=== PATIENT | male | born 1945 | race Caucasian/White ===

== ENCOUNTER 2018-06-22 08:15 | Outpatient (REF) | payer BC, SELFPAY ==
[2018-06-22 21:29] LABS: BUN 12 mg/dL (7-18); CREATININE 0.71 mg/dL (0.70-1.30)
== END 2018-06-22 08:16 ==
LOC: NCHCN 08:15
PROVIDERS: PCP Internal Medicine; Visit Provider Internal Medicine
DX: Z01.812 Encounter for preprocedural laboratory examination (principal); Z13.89 Encounter for screening for other disorder
CPT/HCPCS: 84520; 82565

== ENCOUNTER 2019-02-28 15:26 | Outpatient (REF) | payer BC, SELFPAY ==
[2019-02-28 20:54] LABS: Anion Gap 6.5 mmol/L (3-11); BUN 11 mg/dL (7-18); CO2 31.5 mmol/L (21.0-32.0); CREATININE 0.61 mg/dL (0.70-1.30); Calcium 8.9 mg/dL (8.5-10.1); Chloride 93 mmol/L (98-107); Glucose 96 mg/dL (70-100); Potassium 3.3 mmol/L (3.5-5.1); Sodium 131 mmol/L (136-145)
== END 2019-02-28 15:46 ==
LOC: NCHCN 15:26
PROVIDERS: PCP Internal Medicine; Visit Provider Internal Medicine
DX: I10 Essential (primary) hypertension (principal)
CPT/HCPCS: 80048

== ENCOUNTER 2019-03-18 07:56 | Outpatient (REF) | payer BC, SELFPAY ==
[2019-03-18 20:57] LABS: Anion Gap 8.3 mmol/L (3-11); BUN 16 mg/dL (7-18); CO2 27.7 mmol/L (21.0-32.0); CREATININE 0.67 mg/dL (0.70-1.30); Calcium 8.7 mg/dL (8.5-10.1); Chloride 102 mmol/L (98-107); Glucose 100 mg/dL (70-100); Sodium 138 mmol/L (136-145)
== END 2019-03-18 08:16 ==
LOC: NCHCN 07:56
PROVIDERS: PCP Internal Medicine; Visit Provider Internal Medicine
DX: I10 Essential (primary) hypertension (principal)
CPT/HCPCS: 80048

== ENCOUNTER 2021-03-01 15:30 | Outpatient (CLI) | payer MEDICARE, BC, SELFPAY ==
--- NOTE | 2021-03-01 10:18 | DI.RAD_ITS ---
Exam(s) XR HIP RT COMPLETE AP PELVIS EXAM: XR HIP RT COMPLETE AP PELVIS CLINICAL HISTORY: RIGHT HIP PAIN, M25.551. TECHNIQUE: 2D digital imaging was performed. COMPARISON: No exams were available for comparison FINDINGS: There are moderate degenerative changes of the right hip with joint space narrowing subchondral scler osis and periarticular spurring. The left hip is well maintained. No acute fracture or dislocation is present. The sacroiliac joints and symphysis pubis are well maintained. Moderate degenerative ch anges are seen in the lower lumbar spine. Vascular calcifications are seen in the soft tissues. IMPRESSION: Moderate degenerative changes of the right hip. DATA REPOSITORY: RADIATION DOSE DELIVERED:
== END 2021-03-01 15:50 ==
PROVIDERS: PCP Internal Medicine; Visit Provider Student in an Organized Health Care Education/Training Program
DX: M25.551 Pain in right hip (principal); M16.11 Unilateral primary osteoarthritis, right hip
CPT/HCPCS: 99213; 73502

== ENCOUNTER 2021-03-20 08:23 | Outpatient (CLI) | payer MEDICARE, BC, SELFPAY ==
--- NOTE | 2021-03-20 08:00 | DI.RAD_ITS ---
Exam(s) XR PELVIS AP EXAM: XR PELVIS AP CLINICAL HISTORY: pre op R WAYNE. TECHNIQUE: 2D digital imaging was performed. COMPARISON: CR XR HIP RT COMPLETE AP PELVIS from 03/01/2021 FINDINGS: No fractures evident but again noted are significant degenerative changes in the right hip with joint space narrowing superiorly as well as marginal osteophytes off the femoral head. Similar findings a re not seen in the opposite-left hip. IMPRESSION: Significant degenerative changes right hip.. DATA REPOSITORY: RADIATION DOSE DELIVERED:
== END 2021-03-20 08:24 | disposition home or self-care (01) ==
LOC: DIORS 08:23
PROVIDERS: PCP Internal Medicine; Referring Provider Internal Medicine; Visit Provider Physician Assistant
DX: M16.11 Unilateral primary osteoarthritis, right hip (principal)
CPT/HCPCS: 72170

== ENCOUNTER 2021-03-29 01:47 | Outpatient (CLI) | payer MEDICARE, BC, SELFPAY ==
[2021-03-29 11:11] LABS: Source Nasal/Nares
[2021-03-29 11:12] LABS: HCT 41.2 % (40.0-50.0); HGB 14.6 g/dL (13.5-17.5); MCH 31.2 pg (27.0-33.0); MCHC 35.4 % (32.0-36.0); MPV 10.8 fL (8.0-11.0); Platelet Count 185 10^3/uL (130-400); RBC 4.68 10^6/uL (4.36-5.78); RDW 12.2 % (11.8-14.1); RDW-SD 39.4 fL; WBC 4.89 10^3/uL (4.4-10.8)
[2021-03-29 12:16] LABS: Anion Gap 8.1 mmol/L (3-11); BUN 19 mg/dL (7-18); CO2 28.9 mmol/L (21.0-32.0); CREATININE 0.7 mg/dL (0.70-1.30); Calcium 8.9 mg/dL (8.5-10.1); Chloride 102 mmol/L (98-107); Glucose 111 mg/dL (74-106); Potassium 3.8 mmol/L (3.5-5.1); Sodium 139 mmol/L (136-145)
[2021-03-29 16:26] LABS: COVID-19 PCR Negative (Negative)
== END 2021-03-29 01:48 | disposition home or self-care (01) ==
LOC: LBO 01:47
PROVIDERS: PCP Internal Medicine; Visit Provider Student in an Organized Health Care Education/Training Program
DX: M25.551 Pain in right hip (principal); M16.11 Unilateral primary osteoarthritis, right hip; Z20.822 Contact with and (suspected) exposure to COVID-19; Z01.818 Encounter for other preprocedural examination; Z01.812 Encounter for preprocedural laboratory examination
CPT/HCPCS: 36415; 80048; 85027; 86850; 86900; 86901; 87635

== ENCOUNTER 2021-04-03 15:52 | Observation (INO) | payer MEDICARE, BC, SELFPAY ==
[2021-04-03] VITALS (30 sets, daily range): BP systolic 55–140; BP diastolic 18–77; PULSE 38–77; RESP 12–19; TEMP 36–36.8; O2SAT 94–99; BMI 25.5
[2021-04-03] MEDS: Acetaminophen 500 MG TAB 1000 MG PO ×3 (06:23→21:14)
[2021-04-03] MEDS: Celecoxib 200 MG CAP 400 MG PO (06:23)
[2021-04-03] MEDS: Lactated Ringers 1,000 ML 80 ML IV ×3 (06:24→14:44)
--- NOTE | 2021-04-03 06:47 | W.ANESPRE ---
General Info Date of Service Date Performed: 04/03/21 Height: 5 ft 11 in Weight: 83.2 kg Body Mass Index (BMI): 25.5 Surgical Procedure: Operation Date: 04/03/21 07:50 Proposed Procedures Side Surgeon p Hip Total Hip Anterior Right Mitchell Ibrahim MD Meds Allergies and Home Medications Allergies Allergy/AdvReac Type Severity Reaction Status Date / Time lisinopril Allergy Verified 03/29/21 15:09 oxycodone [From OxyContin] AdvReac Verified 04/03/21 06:13 Home Medication Medication Instructions Recorded amlodipine 10 mg tablet 10 mg PO DAILY 02/28/21 brimonidine 0.2 % eye drops 1 drp OPHTHALMIC (EYE) BID ml 02/28/21 kixenxclrwf-ipgyxfhgi-lto C-Mn 500 1 cap PO DAILY 02/28/21 mg-400 mg capsule latanoprost 0.005 % eye drops 1 drp OPHTHALMIC (EYE) HS ml 02/28/21 sildenafil 100 mg tablet 50 mg PO DAILY PRN tab 02/28/21 Current Visit Medications: Current Medications Generic Name Dose Route Start Last Admin Trade Name Freq PRN Reason Stop Dose Admin Acetaminophen 1,000 mg 04/03/21 06:00 04/03/21 06:23 Acetaminophen 500 Mg Tab PO 04/03/21 16:00 1,000 mg PREOP LIBRA Administration Celecoxib 400 mg 04/03/21 06:00 04/03/21 06:23 Celecoxib 200 Mg Cap PO 04/03/21 16:00 400 mg PREOP LIBRA Administration Tranexamic Acid 1,000 mg/ 60 mls @ 360 mls/hr 04/03/21 06:00 Sodium Chloride IV 04/03/21 16:00 PREOP LIBRA Ringer's Solution 1,000 mls @ 80 mls/hr 04/03/21 06:00 04/03/21 06:24 IV 05/02/21 23:59 80 mls/hr INFUSION LIBRA Administration Cefazolin Sodium/Dextrose 2 gm in 50 mls @ 100 mls/hr 04/03/21 06:00 Ancef Duplex IVPB 05/02/21 23:59 PREOP LIBRA IV Miscellaneous Supplies 1 each 04/03/21 06:00 Iv Access IV 05/02/21 23:59 DIRECTED LIBRA Sodium Chloride 0 ml 04/03/21 06:00 Normal Saline Flush 10 Ml Syr IV 05/02/21 23:59 PRN PRN Sodium Chloride 0 ml 04/03/21 06:00 Normal Saline 10 Ml Vial IJ 05/02/21 23:59 DIRECTED PRN Sterile Water 0 ml 04/03/21 06:00 Water,Injection,Sterile 10 Ml Vial IJ 05/02/21 23:59 DIRECTED PRN PFSH Active Problems Active Problems: Problem Status Onset Code Hypertension I10 Glaucoma H40.9 Hearing loss H91.90 Lesion of liver K76.9 Low back pain M54.5 Erectile dysfunction N52.9 Osteoarthritis of right hip M16.11 Left cervical radiculopathy M54.12 Pain due to onychomycosis of toenails of both feet B35.1, M79.675, M79.674 Right hip pain M25.551 Medical History Medical History Dislocation of L4-L5 lumbar vertebra Diverticulosis, sigmoid Hemangioma of liver managed by [facility] Left cervical radiculopathy Pain due to onychomycosis of toenails of both feet Right hip pain Surgical History Surgical History Sebaceous cyst s/p excision for right buttocks Tobacco Smoking/Tobacco Use Status: Former Tobacco Use Alcohol Alcohol Intake: never Substance Use Substance use type: does not use Vital Signs and Lab Results Vital Signs Most Recent Vital Signs in EMR: Most Recent Vital Signs Temp Pulse Resp BP Pulse Ox 36.2 C L 58 L 18 140/75 98 04/03/21 06:00 04/03/21 06:00 04/03/21 06:00 04/03/21 06:00 04/03/21 06:00 Lab Results Blood Type / Crossmatch: Patient ABO/Rh B Negative 03/29/21 10:59 03/29/21 Antibody Screen Negative 03/29/21 10:59 03/29/21 Complete Blood Count: White Blood Count 4.89 10^3/uL (4.4-10.8) 03/29/21 10:59 03/29/21 Red Blood Count 4.68 10^6/uL (4.36-5.78) 03/29/21 10:59 03/29/21 Hemoglobin 14.6 g/dL (13.5-17.5) 03/29/21 10:59 03/29/21 Hematocrit 41.2 % (40.0-50.0) 03/29/21 10:59 03/29/21 Platelet Count 185 10^3/uL (130-400) 03/29/21 10:59 03/29/21 Complete Metabolic Panel: Sodium Level 139 mmol/L (136-145) 03/29/21 10:59 03/29/21 Potassium Level 3.8 mmol/L (3.5-5.1) 03/29/21 10:59 03/29/21 Chloride Level 102 mmol/L (98-107) 03/29/21 10:59 03/29/21 Carbon Dioxide Level 28.9 mmol/L (21.0-32.0) 03/29/21 10:59 03/29/21 Blood Urea Nitrogen 19 mg/dL (7-18) H 03/29/21 10:59 03/29/21 Creatinine 0.7 mg/dL (0.70-1.30) 03/29/21 10:59 03/29/21 Calcium Level 8.9 mg/dL (8.5-10.1) 03/29/21 10:59 03/29/21 Glucose Level 111 mg/dL (74-106) H 03/29/21 10:59 03/29/21 Liver Function Panel: No Data to Display Coagulation Panel: No Data to Display Cardiac Panel: No Data to Display Arterial Blood Gas: No Data to Display Venous Blood Gas: No Data to Display Pancreas Panel: No Data to Display Thyroid Panel: No Data to Display Infectious Disease: Coronavirus (COVID-19)(PCR) Negative (Negative) 03/29/21 10:22 03/29/21 Coronavirus 2019 Source Nasal/nares 03/29/21 10:22 03/29/21 Blood Cultures: No Data to Display Toxicology Panel: No Data to Display Anesthesia Assessment and Plan Anesthesia History Personal History: No History of Anesthesia Complications Family History: No Family History of Anesthesia Complications Exercise Tolerance Exercise Tolerance: Metabolic Equivalents>4 Pertinent Negatives Pertinent Negatives: No Symptoms of GERD, No Major Cardiovascular Symptoms or Complaints (HTN ), No Major Pulmonary Symptoms or Complaints and No History of CVA/TIA Cardiac & Pulmonary Exam Cardiac Exam: Normal S1/S2 Heart Sounds Pulmonary Exam: Clear Bilateral Breath Sounds Airway Exam Known Difficult Airway: No Mallampati Class: 2 Mouth Opening: Normal (> 3cm) Thyromental Distance: Greater than 3 cm Neck Range of Motion: Limited ROM and Known Cervical Instability or radiculopathy (Right side, neg- numbness tingling to upper extrem) Neck Circumference: Normal Teeth Condition: Loose or Chipped ASA Classification ASA Score: ASA 2 Emergency Case?: No NPO Status NPO Status: NPO Clears >2 hours, Solids >8 hours Anesthesia Plan Resuscitation Status: Full Code Anesthesia Technique: Spinal Anesthesia Airway Planned: Natural Airway Monitors Used: Standard Monitors
[2021-04-03] MEDS: ceFAZolin 2 GM/50 ML BAG IVPB (07:31)
--- NOTE | 2021-04-03 07:39 | PDOC.DSDIS_ITS ---
Documented by User: BALAJI Hall 04/03/21 07:44 Discharge Plan Disposition Patient Disposition: HOME Condition: Good Discharge Details Reason For Visit: Right WAYNE Attending Provider: Mitchell Ibrahim Primary Care Provider: Shavon Vela Home Meds and New Rx's Prescriptions: New celecoxib 200 mg capsule 200 mg PO BID Qty: 60 RF: 0 aspirin 81 mg tablet,delayed release (DR/EC) 81 mg PO BID Qty: 60 RF: 0 pantoprazole 40 mg tablet,delayed release (DR/EC) 40 mg PO DAILY Qty: 30 RF: 0 oxycodone 5 mg capsule 5 mg PO Q4H PRNQty: 20 RF: 0 gabapentin 300 mg capsule 300 mg PO QHS Qty: 14 RF: 0 acetaminophen 500 mg capsule 1,000 mg PO Q8H PRN PRNQty: 90 RF: 0 Continued sildenafil [Viagra] 100 mg tablet 50 mg PO DAILY PRNRF: 0 brimonidine 0.2 % drops 1 drp ophthalmic (eye) BID RF: 0 latanoprost 0.005 % drops 1 drp ophthalmic (eye) HS RF: 0 kaiskepfcbl-vswqgbzfj-qgo C-Mn 500-400 mg capsule 1 cap PO DAILY RF: 0 amlodipine 10 mg tablet 10 mg PO DAILY RF: 0 Discharge Instructions Additional Instructions: Total Hip Discharge Instructions Activity: The most important activity is to walk. You should try to take short walks a few times a day. You have no restrictions on movement or positioning, but do not try to force what you do. You will find some stiffness and weakness with hip flexion (lifting your knee). Do not try to strengthen this too early, continue to practice walking and stairs and this will come. - Outpatient physical therapy can be helpful to help return you to a normal gait and improve your flexibility and strength. This can start around 2 weeks. For some patients, it?s not necessary. Usually this is determined at the time of discharge or at the first post-operative visit. - You should wear the DIRK hose on both legs for 2 weeks. Dressing: Keep the surgical dressing in place for at least one week. After the first week it may be removed and replace with light gauze and tape or nothing. It may get wet after 3 days but avoid soaking the dressing. If it gets wet, just lightly pat dry. It is important to always keep some gauze between skin folds, especially when you are sitting. Spend some time with the wound exposed when you are lying flat as the incision does wrinkle onto itself. Medications: - You should take Tylenol and an anti-inflammatory Celebrex as your primary pain control medications. If the Celebrex is too expensive or not covered, please call the office for another alternative (Advil/Ibuprofen or Naproxen/Aleve). - You have been prescribed a stronger pain medication Oxycodone for breakthrough pain, take as needed as prescribed. - You have also been prescribed a stomach acid reduction agent Pantoprozole to help reduce stomach acid and reflux. - You will be taking Aspirin 81mg twice a day for DVT prevention unless instructed otherwise. - If you have constipation you should take Colace or Miralax (both [id number]). It takes most people 3-4 days to have a bowel movement. Follow-up: 2 weeks If you have any acute concerns or questions, please do not hesitate to contact the office at [phone]. You may contact Dr. Ibrahim with any questions after hours through the hospital at [phone] or on his cell phone at [phone]. Referrals: Mitchell Ibrahim MD [ [facility] STAFF PHYSICIAN] - Equipment/Supplies: Walker Activity:: Activity as Tolerated Shower/Bathe:: Cover Diet:: As Tolerated Discharge Orders Discharge Orders: Discharge Order (Routine); Ordered 04/03/21 Ordered By: Mitchell Ibrahim DS: Diagnosis Discharge Diagnosis (1) History of total right hip replacement: Status: Inactive Documented by User: Mitchell Ibrahim MD 04/03/21 11:06 Discharge Plan Disposition Patient Disposition: HOME Condition: Good Discharge Details Reason For Visit: Right WAYNE Attending Provider: Mitchell Ibrahim Primary Care Provider: Sahvon Vela Home Meds and New Rx's Prescriptions: New celecoxib 200 mg capsule 200 mg PO BID Qty: 60 RF: 0 aspirin 81 mg tablet,delayed release (DR/EC) 81 mg PO BID Qty: 60 RF: 0 pantoprazole 40 mg tablet,delayed release (DR/EC) 40 mg PO DAILY Qty: 30 RF: 0 oxycodone 5 mg capsule 5 mg PO Q4H PRNQty: 20 RF: 0 gabapentin 300 mg capsule 300 mg PO QHS Qty: 14 RF: 0 acetaminophen 500 mg capsule 1,000 mg PO Q8H PRN PRNQty: 90 RF: 0 Continued sildenafil [Viagra] 100 mg tablet 50 mg PO DAILY PRNRF: 0 brimonidine 0.2 % drops 1 drp ophthalmic (eye) BID RF: 0 latanoprost 0.005 % drops 1 drp ophthalmic (eye) HS RF: 0 hyuwlpcizxx-vwlxzzjlu-coo C-Mn 500-400 mg capsule 1 cap PO DAILY RF: 0 amlodipine 10 mg tablet 10 mg PO DAILY RF: 0 Discharge Instructions Additional Instructions: Total Hip Discharge Instructions Activity: The most important activity is to walk. You should try to take short walks a few times a day. You have no restrictions on movement or positioning, but do not try to force what you do. You will find some stiffness and weakness with hip flexion (lifting your knee). Do not try to strengthen this too early, continue to practice walking and stairs and this will come. - Outpatient physical therapy can be helpful to help return you to a normal gait and improve your flexibility and strength. This can start around 2 weeks. For some patients, it?s not necessary. Usually this is determined at the time of discharge or at the first post-operative visit. - You should wear the DIRK hose on both legs for 2 weeks. Dressing: Keep the surgical dressing in place for at least one week. After the first week it may be removed and replace with light gauze and tape or nothing. It may get wet after 3 days but avoid soaking the dressing. If it gets wet, just lightly pat dry. It is important to always keep some gauze between skin folds, especially when you are sitting. Spend some time with the wound exposed when you are lying flat as the incision does wrinkle onto itself. Medications: - You should take Tylenol and an anti-inflammatory Celebrex as your primary pain control medications. If the Celebrex is too expensive or not covered, please call the office for another alternative (Advil/Ibuprofen or Naproxen/Aleve). - You have been prescribed a stronger pain medication Oxycodone for breakthrough pain, take as needed as prescribed. - You have also been prescribed a stomach acid reduction agent Pantoprozole to help reduce stomach acid and reflux. - You will be taking Aspirin 81mg twice a day for DVT prevention unless instructed otherwise. - If you have constipation you should take Colace or Miralax (both [id number]). It takes most people 3-4 days to have a bowel movement. Follow-up: 2 weeks If you have any acute concerns or questions, please do not hesitate to contact the office at [phone]. You may contact Dr. Ibrahim with any questions after hours through the hospital at [phone] or on his cell phone at [phone]. Referrals: Mitchell Ibrahim MD [ [facility] STAFF PHYSICIAN] - Equipment/Supplies: Walker Activity:: Activity as Tolerated Shower/Bathe:: Cover Diet:: As Tolerated Discharge Orders Discharge Orders: Discharge Order (Routine); Ordered 04/03/21 Ordered By: Mitchell Ibrahim
[2021-04-03] MEDS: Bupivacaine 0.25% Pres-Free 30 ML VIAL (08:51)
[2021-04-03] MEDS: Ketorolac 30 MG/ML VIAL (08:51)
--- NOTE | 2021-04-03 09:00 | DI.RAD_ITS ---
Exam(s) XR HIP RT IN OR EXAM: XR HIP RT IN OR CLINICAL HISTORY: OA OF RIGHT HIP TECHNIQUE: 2D and realtime digital imaging was performed. CONTRAST MATERIAL: Refer to procedure report. COMPARISON: No exams were available for comparison FINDINGS: Fluoroscopy was provided for Dr. Ibrahim during the performance of a right total hip arthroplasty. Please refer to the procedure report for complete details. Ka,r=4.33 mGy IMPRESSION: RADIATION DOSE DELIVERED:
--- NOTE | 2021-04-03 09:07 | ROE_ITS ---
Date of service: 04/03/21 Time of Service: 09:07 Operative Note Operative Note DATE OF PROCEDURE: 04/03/21 PRE-OP DIAGNOSIS: Right Hip Osteoarthritis POST-OP DIAGNOSIS: same PROCEDURE: Right Anterior Total Hip Arthroplasty SURGEON: Mitchell Ibrahim SECURITY SERGEANT: Munir Ivey ANESTHESIA TYPE: Spinal Refer to Anesthesia Record ESTIMATED BLOOD LOSS: 850 PATHOLOGY: none sent TOURNIQUET TIME: 0 COMPLICATIONS: None Patient was transported to: PACU Patient's condition: stable Implants: 1. Depuy [place] Acetabular Component, 58mm 2. Depuy Acetabular Liner, [id number] 3. Depuy Corail High Offset Collared Femoral Stem, Size 16 4. Depuy Altrx Ceramic Femoral Head, Size 36+5mm Indications: I have seen Emmanuel in clinic for symptoms of hip arthritis, confirmed with radiographic findings. Emmanuel has exhausted nonoperative methods and was having significant limitations in daily function and desired better function and less pain. I discussed the technical details of a hip replacement. I explained the risks of the procedure to include, but not limited to, bleeding, infection, pain, stiffness, fracture, damage to nerves and vessels, damage to muscles and tendons, loosening, instability, leg length inequality, need for repeat procedure, blood clot and cardiopulmonary demise. Despite these risks, he elected to proceed. Findings: There was significant signs of arthritis throughout the hip. There was a bleeding vessel encountered around the medial proximal femur during capsular release which was difficult to control. This was eventually managed with electrocautery and no additional bleeding but there was notable blood loss during that time. Procedure Description: Emmanuel was greeted in the preoperative holding area where the correct side was identified and marked. The consent was reviewed with the patient and signed. The history and physical was updated. All questions were answered. Emmanuel was taken back to the operating room. A spinal anesthestic was then administered. The feet were wrapped with cast padding and Coban and then placed into the boot liners and then into the boots. Care was taken to protect the skin and make sure the heels were fully down and the boots were stable. The patient was then positioned onto the HANA table. Both legs were held in a neutral position. SCDs were applied. The patient was then slid down onto a peroneal post. Prophylactic antibiotics in the form of Cefazolin were administered. 1g of Tranxemic Acid was given intravenously within 30 minutes of incision. The right leg was then prepped with Chloraprep and draped in a standard fashion. A second prep with Chloraprep was performed prior to placement of a shower-curtain type drape with Iodine impregnated skin protection. A timeout to confirm correct identity, side and site, procedure, allergies, anesthesia, and medical concerns was performed. An obliquely oriented incision was made starting lateral to the ASIS and running distal over the Tensor Fascia Mally (TFL) muscle belly toward the fibular head, approximately 10cm. The skin and soft tissue was dissected sharply, through Niurka?s fascia, and to the fascia of the TFL. With the fascia and superior border of the IT band identified, the fascia was incised with a new knife just above any perforators from the IT band. The TFL muscle belly was bluntly dissected away from the fascia and moved laterally. The fat between TFL and rectus was identified to ensure the dissection was not within the TFL. Blunt dissection created space between abductors and the capsule and retractor was p laced over the lateral femoral neck. The fibers of the rectus femoris tendon were identified and these were freed from the anterior capsule. A second cobra retractor was placed around the medial femoral neck. The TFL was further retracted laterally to show the deep fascia. Careful dissection through this layer identified three main crossing vessels of the lateral femoral circumflex. These were cauterized in multiple locations and then cut without any noticeable bleeding. The TFL was further released bluntly from the deep fascia to expose anterior hip capsule and fat The Rg orthopaedic retractor was then placed beneath the TFL and against sartorius and medial soft tissues to protect and retract the soft tissues. A T-capsulotomy was then performed starting at the superior lateral acetabulum and moving distally to the intertrochanteric ridge. These capsular flaps were tagged with a No. 1 Ethibond and elevated from within. The capsular flaps were released to the shoulder of the lateral neck and to the lesser trochanter to give excellent visualization of the proximal femur. A neck osteotomy was performed using an oscillating saw based on preoperative templates. This cut started in the shoulder and of the lateral neck and exited medially. The saw was at all times directed medially to avoid injury to the greater trochanter. Gross traction was applied to the leg and the osteotomy opened. The femoral head was removed with a corkscrew, making sure to protect the TFL on its exit. Traction was released after head removal. This was measured on the back table to determine the starting reamer size. Portions of the rectus obscuring visualization were minimally elevated off the superior acetabulum. An anterior retractor was placed over the anterior wall between capsule and labrum and attached to the Gripper retraction system. The femur was rotated to 90 degrees and medial capsule was fully released until the lesser trochanter was palpable and visible; the femur was returned to 30 degrees. At this point there was noted to be some bleeding from the medial tissues. This was apparently venous but was large flow. Control of the vessel was challengig in this position. I was able to grasp the vessel with a pickup and cauterize the vessel adequately enough to stop all bleeding. There was some notable blood loss from this which slowed significantly after this. A posterior retractor was then placed similarly between capsule and labrum. This provided excellent visualization. The contents of the cotyloid fossa were removed with electrocautery and the labrum was removed with a knife. There was a notable floor osteophyte. There was significant chondromalacia of the superior acetabulum. Acetabular reaming began with a 54mm reamer. This first reaming was directed anterior to posterior and medial to get down to the true floor. This was inspected and reamed until the true floor was reached. The anterior retractor was then released and entry and exit was provided by traction on the capsular flaps. I then reamed sequentially up to a 58mm reamer where good fit was obtained. The larger reamers were oriented based on anatomical reference of the anterior and lateral garcia to ensure proper abduction and anteversion. Positioning and size was confirmed with the fluoroscopy. A 58mm Depuy [place] acetabular component was selected. The acetabulum was reamed around the periphery with the selected acetabular size to prevent a rim fit. The deep tissues were irrigated. The acetabular component was then impacted in a position of about 40-45 degrees of abduction and 15-20 degrees of anteversion, using the patient?s anatomy as the ultimate landmark. Fluoroscopy was used to confirm this. There was excellent chemist internship of the acetabular component and the inserting handle was removed. The acetabular liner, Depuy [id number] polyethylene liner, was inserted and lined up with the tines of the acetabular component. There was no soft tissue interposition. The liner was then impacted into position and confirmed to be well-seated. A portion of the rodrick-articular cocktail was then injected around the acetabulum into the capsule and periosteum. This cocktail consisted of 50cc of 0.25% Bupivicaine and 20cc of Exparel and 30mg of Ketorolac. The leg was rotated to 120 degrees. Any remaining medial capsule was released until the lesser trochanter was easily palpable. A retractor was placed medially. The lateral capsule was further released into the shoulder to allow access to the greater trochanter. A Luque retractor was placed over the greater trochanter which allowed the trochanter to flip in front of the capsule for excellent exposure. The leg was brought down into maximal extension and 20 degrees of adduction while ensuring there was no impingement on the acetabulum. Any remnant capsule within the trochanter was released. Piriformis and obturator externis were identified and protected. There was excellent access to the proximal femur. The lateral neck remnant was removed with a rongeur. A blunt canal probe was used to identify the canal and trajectory for later broaching. A box osteotome initiated the broach course. A small curved rasp and a curved curette were used to work laterally. Broaching then began with a size 8 Corail broach. This was inserted manually around the trochanter and into the canal before mallet blows. The broach was seated to a few millimeters below the cut level based on the neck cut and the preoperative template. Sequential broaching was continued with the [place] pneumatic broaching device until a tight fit was obtained with good rotational control of the femur. A trial high offset neck was inserted along with a +1.5 trial head. The leg was brought out of extension and adduction and then reduced with traction and internal rotation. The leg was stable anteriorly in a position of 30 degrees of extension and 90 degrees of external rotation. Fluoroscopy was used to ensure there was no fracture and the stem was seated well. Leg lengths were checked with an AP pelvis and pelvic reference points. [employer] navigation system was used to confirm appropriate positioning and leg length and offset. Based on this imaging and navigation, it was deemed that a +5 head would bring the leg length even and only slightly increase offset. Stability was tested and there was a slight shuck of the leg, so I proceeded with the +5 recommendation on a high offset stem. Once content with the desired offset and leg lengths, the leg was brought back into extension, external rotation and adduction. The periosteum and surrounding tissue was injected with remaining portion of the rodrick-articular cocktail. The proximal femur was irrigated as well as the deep tissues. The Depuy Corail high offset collared stem, size 16, was then manually inserted into the proximal femur making sure to control rotation. It was then malleted into position with light blows, giving breaks to allow bone expansion and decrease risk of fracture. The selected Depuy Altrx Ceramic Head, size 36+5mm, was then placed onto the clean and dry trunnion and secured with impaction onto the tapered fit. The leg was brought back out of extension and adduction and reduced with traction and internal rotation. Stability was confirmed with no shuck at 90 degrees of external rotation and 30 degrees of extension. No impingement through range of motion arc. Final x-ray images were obtained with fluoroscopy to confirm adequate positioning and no intraoperative fracture. The deep tissues were thoroughly irrigated with Irrisept chlorhexadine solution. The capsule was then reapproximated with the previously placed Ethibond sutures. The TFL fascia was finally closed with a No. 2 Stratafix, barbed suture. Deep tissues were then reapproximated with 0 Vicryl and a running 2-0 Vicryl. The skin was closed with a running 4-0 Monocryl in a subcuticular fashion. This was reinforced with skin glue. A Mepilex silver dressing was applied. At the end of the case, all counts were correct. Emmanuel was transferred to the hospital bed without difficulty and suffering some higher than normal blood loss but no other complication. He remained hemodynamically stable. Emmanuel has a good prognosis. Physical therapy will start today and without restrictions, weight-bearing as tolerated. Aspirin 81mg BID will be used for DVT prophylaxis.
[2021-04-03] MEDS: Lactated Ringers 1,000 ML 1000 ML IV (10:28)
--- NOTE | 2021-04-03 10:39 | W.ANESPOSTOP ---
Postoperative Evaluation Date, Time and Location Date Performed: 04/03/21 Time Performed: 10:39 Patient Location: Day Surgery Unit Vital Signs Most Recent Imported Vital Signs: Most Recent Vital Signs Temp Pulse Resp BP Pulse Ox 36.1 C L 52 L 18 125/69 94 04/03/21 10:36 04/03/21 10:36 04/03/21 10:36 04/03/21 10:36 04/03/21 10:36 Pain Score Most Recent Pain Score: Most Recent Pain Score Pain Level 0 04/03/21 10:36 Assessment Mental Status: Awake (Alert & Oriented to Patient Baseline) Airway and Respiratory Function: Patent airway with normal (patient baseline) respiratory exam Cardiovascular Function: Hemodynamically Stable Hydration Status: Adequately Hydrated Nausea & Vomiting: No Nausea or Vomiting Pain: Pt. Denies Any Pain Peripheral Nerve Block: Regional nerve block not resolved at time of post operative discharge
[2021-04-03] MEDS: oxyCODONE 5 MG TAB PO (12:17)
--- NOTE | 2021-04-03 12:45 | RT.EKG_ITS ---
APPROVED REPORT Exam: Resting ECG Reason for Exam: low bp, blood loss Patient Location: O HR:58 bpm ECG Measurements Heart Rate 58 AXIS DC 175 P 23 QRSd 95 QRS 75 QT 425 T 61 QTc 417 Conclusion Sinus bradycardia...rate< 60
--- NOTE | 2021-04-03 13:10 | PDOC.ANES ---
Date of service: 04/03/21 Time of Service: 13:10 Anesthesia Note Report Anesthesia Note: 1250 Called STAT to [facility] for unresponsive patient. Upon arrival pt. was hypotensive, bradycardic, diaphoretic in bed.Two RN's in room. Pt was responsive denying chest pain, nausea, dizziness. Pt states he was just tired. Immediately placed in Trendelenburg. BP 55/27, HR redular 37, O2 sat 99%. 5 mg Ephedrine IVP at 1255. BP 79/46, HR reg 49, sats 99% additional 5 mg Ephedrine IVP at 1256. BP 88/55, now on 3 lead ECG SR 60, sats 99%. 1259 obtaining 12 lead ECG. Pt states oh boy, do I feel better, I think it was that damn pain pill. No longer diaphoretic. BP 128/64, SR 61, sats 98%. Report to Maria Luz Chavarria CRNA supervisor shuttle preparation Anesthesia and Dr. Ibrahim.
--- NOTE | 2021-04-03 14:05 | IN_ITS ---
Date of service: 04/04/21 Time of Service: 14:05 PT Notes Visit Reasons: OA Right Hip Physical Therapy Day Surgery Initial Evaluation Date: 04/04/2021 Referring Doctor: Mitchell Ibrahim MD PT Orders: PT CONSULT: S/P Ortho surgery. S/P R Anterior AWYNE. Precautions: WBAT on R LE with AD. Patient Profile/Admitting Diagnosis: Patient is a 75-year-old male with degenerative joint disease of the R hip and is S/P R anterior total hip arthroplasty on postoperative day 0. PMHX: Medical History (Updated 03/20/21 @ 08:40 by Georgette Alonzo) Diverticulosis, sigmoid Hemangioma of liver managed by [facility] Left cervical radiculopathy Pain due to onychomycosis of toenails of both feet Right hip pain Surgical History (Updated 03/20/21 @ 08:16 by Georgette Alonzo) Sebaceous cyst s/p excision for right buttocks Social History/Home Situation: Lives with in a private home with one step leading onto a porch, rails on B sides. There is one step to the bedroom. 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 Equipment Owned/DME: [employer] Subjective: Patient experienced an episode of vasovagal syncope and was being attended to by Nurse Conciliator Antonina and Nurse Elmer when PT initially came to [facility] around 12:40 PM today. PT evaluation was deferred as patient was not safe to be mobilized. Nurse Gates stated that patient's symptoms and orthostasis resolved when PT came back about 1.5 hours later to attempt a second evaluation. Patient denied any recurrence of symptoms until after pre-ambulation activities were initiated. Objective: General Observation: Patient was seated on reclining chair, in no apparent distress. Mepilex Ag over surgical incision. Mental Status: Alert and oriented x 4 Pain: ROM: Right Lower Extremity: Hip flexion WFL. Hip abduction WFL. Knee flexion WFL. Ankle dorsiflexion WFL. Ankle plantarflexion WFL. Left Lower Extremity: Hip flexion WFL. Hip abduction WFL. Knee flexion WFL. Ankle dorsiflexion WFL. Ankle plantarflexion WFL Strength: Right Lower Extremity: Hip flexors 4/5. Hip abductors 4/5. Knee flexors 5/5. Knee extensors 4/5. Ankle dorsiflexors 5/5. Ankle plantarflexors 5/5. Left Lower Extremity:Hip flexors 5/5. Hip abductors 5/5. Knee flexors 5/5. Knee extensors 5/5. Ankle dorsiflexors 5/5. Ankle plantarflexors 5/5. Sensation: Intact as to pain and light pressure in B LE Bed Mobility/Transfers: Sit to stand contact guard assist Stand to sit contact guard assist Gait: Unable to test due to a second vasovagal syncope. Patient was asked to stand up from chair and was instructed to perform bilateral heel raises while holding onto FWW prior to ambulation however, at around the 7th count, patient reported another onset of dizziness that abruptly developed into a fainting episode. He was immediately guided back onto chair and PT shouted for help. Nurse Anahi came in immediately and we both facilitated fully reclining the chair to almost flat before the patient fully lost consciousness for about a minute. Nurse Cecilia followed in and assisted with immediate management of patient's syncopal episode. No further PT assessment was done and the team decided on recommending to orthopod admission into the medrg unit overnight. Balance: Static Sitting: Normal Dynamic Sitting: Normal Static Standing: Fair Dynamic Standing: Unable to test due to a second vasovagal syncope Special Tests: Mobility Limitations Standardized Measure [facility] AM-PAC 6 clicks Basic Mobility Inpatient Short Form: Raw Score: 14 CMS Score: 61% deficit Informed Consent/Education: Patient is agreeable to initiation of mobility assessment. Assessment: Another vasovagal syncope prevented mobility assessment in patient. Strongly recommend admission to med [facility] unit overnight for further evaluation and treatment. Patient presents with clinical signs and symptoms consistent with current/admitting diagnoses that have resulted to mobility limitations, gait instability, generalized weakness, and impairment of motor control as demonstrated by the following impairment level findings: 1. Decreased strength to R hip major muscle groups 2. Impaired standing balance 3. Vasovagal syncope Impairments are contributing to the following functional limitations: 1. Inability to safely ambulate Patient is assessed as a 64264 high complexity based on the following: History: 75-year-old male with impairment level findings, functional limitations, and past medical history as indicated above Examination: Demonstrable impairment in strength, balance, and mobility level with underlying impairments and functional limitations as documented above Presentation: Unstable Decision Makin high complexity Goals: N/A. Plan of Care/Treatment Plan: N/A. DISCHARGE RECOMMENDATIONS: Strongly recommend admission to med surg unit overnight for further evaluation and treatment. TREATMENT CODE/TIME: 42844 x 25 minutes beginning at 14:05 PM. Thank you for the opportunity to participate in the care of this patient. Sanaz Martini PT, DPT, CLT [facility] [place], [place]
--- NOTE | 2021-04-03 14:30 | RT.EKG_ITS ---
APPROVED REPORT Exam: Resting ECG Reason for Exam: patient vagaled. Patient Location: O HR:56 bpm ECG Measurements Heart Rate 56 AXIS AK 170 P 32 QRSd 94 QRS 73 QT 421 T 63 QTc 407 Conclusion Sinus bradycardia...rate< 60
[2021-04-03] MEDS: Normal Saline Flush 10 ML SYR IV (14:44)
--- NOTE | 2021-04-03 14:52 | PDOC.ANES ---
Date of service: 04/03/21 Time of Service: 14:52 Anesthesia Note Report Anesthesia Note: Called STAT to [facility] for second event of unresponsive patient in 215. Pt was up with PT when he stated I don't feel well. Pt sat himself down into the chair where he became unresponsive. PT called for help, RN's arrived and called me STAT. Pt regained conciousness after within one minute. First recorded 1431 BP 70/18, HR regular 51, sats 97%. Denied chest pain/pressure, nausea,, or dizziness upon regaining conciousness. 1432 BP 90/45, HR regular 54. No medication used during this event. Troponin I, H/H, BMP ordered STAT. Dr. Ibrahim notified and is admitting this pt to tele. Pt maintains that he feels tired throughout this entire episode, which was his only complaint with the previous episode this afternoon. 1435 BP 89/47 HR 42 1437 BP 102/49 HR 56 1440 BP 109/56 HR 55 1445 BP 111/53 HR 54
[2021-04-03 15:07] LABS: HCT 31.4 % (40.0-50.0); HGB 11.2 g/dL (13.5-17.5)
[2021-04-03 15:29] LABS: BUN 13 mg/dL (7-18); CREATININE 0.5 mg/dL (0.70-1.30); Calcium 7.8 mg/dL (8.5-10.1); Chloride 104 mmol/L (98-107); Glucose 175 mg/dL (74-106); Potassium 3.4 mmol/L (3.5-5.1); Sodium 137 mmol/L (136-145); Troponin I < 0.05 ng/mL (<0.06)
--- NOTE | 2021-04-03 15:46 | SUR.PHASEII ---
04/03/21 Attempted to cancel the long lead EKG which was ordered in error unable to cancel it. [facility] aware
--- NOTE | 2021-04-03 16:13 | W.PM.HP.N ---
Date of service: 04/03/21 Time of Service: 16:13 Assessment and Plan Assessment and plan (1) Osteoarthritis of right hip: Status: Acute Assessment and plan: Status post right anterior total of arthroplasty. Some excessive bleeding during surgery otherwise no notable complications. Will be weightbearing as tolerated after tonight. For tonight, due to the syncopal events, he will maintain bedrest precautions. No positioning restrictions. Hold aspirin for DVT prophylaxis, restarting tomorrow. Tylenol, Celebrex, and tramadol for primary pain control. May apply heat and ice as needed. Qualifiers: Osteoarthritis type: primary Qualified Code(s): M16.11 - Unilateral primary osteoarthritis, right hip (2) Acute postoperative anemia due to greater than expected blood loss: Status: Acute Assessment and plan: Notable blood loss from the surgery. Hemoglobin dropped from 14.6-11.2. He had 2 syncopal events, one with activity and 1 without. He maintains a fairly low heart rate and there may be some electrical limitation in his ability to become tachycardic which is also causing some exacerbation of the symptoms. Nevertheless, he is stable in between event and actually looks quite good. At this point, we will maintain telemetry overnight as well as every 4 hours vital sign checks. We will also stay in bed overnight allows by to acclimate some continued IV fluids running. I will check a repeat hemoglobin in the morning to determine whether he may need transfusion. We will then restart postoperative protocols in the morning. History of Present Illness History of Present Illness Chief Complaint: Syncopal event Narrative: Emmanuel is a 75-year-old who underwent an anterior right hip arthroplasty this morning. There was some excessive bleeding during the case which resulted in a blood loss of 850 cc. He did well initially in the recovery period. Unfortunately, he had 2 separate events, one while laying down the other while working physical therapy, which resulted in hypotension, dizziness, and eventually syncopal event. He is able to be set to a chair. He recovered on his own. Given the 2 events the discharge process was paused and I reevaluate him. He is comfortable in the chair. He denies any significant pain. He does have swelling to the right hip. He feels that the feet are now working fully no numbness. He has no urge to urinate. Review of Systems All systems reviewed & are unremarkable except as noted in HPI and below [facility] Medical History Dislocation of L4-L5 lumbar vertebra Diverticulosis, sigmoid Hemangioma of liver managed by [facility] Left cervical radiculopathy Pain due to onychomycosis of toenails of both feet Right hip pain Surgical History History of total right hip replacement Sebaceous cyst s/p excision for right buttocks Social History Smoking/Tobacco Use Status: Former Tobacco Use Quit Date: 11/02/10 Smoking risk assessment performed?: Yes Alcohol Intake: never Substance use type: does not use Current gender identity: male Additional Social history: unablet oa assess [employer] Allergies and Home Medications Allergies Allergy/AdvReac Type Severity Reaction Status Date / Time lisinopril AdvReac cough Verified 04/03/21 07:09 oxycodone [From OxyContin] AdvReac Verified 04/03/21 06:13 Home Medications Medication Instructions Recorded Confirmed Type amlodipine 10 mg tablet 10 mg PO DAILY 02/28/21 04/03/21 History brimonidine 0.2 % eye drops 1 drp OPHTHALMIC (EYE) BID ml 02/28/21 04/03/21 History pvajbgcgsss-tttycowpe-nzw C-Mn 500 1 cap PO DAILY 02/28/21 03/29/21 History mg-400 mg capsule latanoprost 0.005 % eye drops 1 drp OPHTHALMIC (EYE) HS ml 02/28/21 04/03/21 History sildenafil 100 mg tablet 50 mg PO DAILY PRN tab 02/28/21 03/29/21 History acetaminophen 1,000 mg PO Q8H PRN PRN #90 cap 04/03/21 Rx aspirin 81 mg PO BID #60 tab 04/03/21 Rx celecoxib 200 mg PO BID #60 cap 04/03/21 Rx gabapentin 300 mg PO QHS #14 cap 04/03/21 Rx oxycodone 5 mg PO Q4H PRN #20 cap 04/03/21 Rx pantoprazole 40 mg PO DAILY #30 tab 04/03/21 Rx Exam Narrative Exam Narrative: Sitting upright in the chair. No acute distress. Slightly pale. Alert oriented x3. Breathing comfortably.audible wheezing or distress. Bedside monitor shows normal sinus rhythm at 62 bpm. Evaluation of the right hip shows dressing which is clean dry and intact. There is notable swelling about the right hip with large palpable hematoma which is compressible and not tense. The remainder the thigh is soft. No significant distal swelling. Palpable DP and PT pulse. Intact ankle dorsiflexion, plantarflexion, EHL and FHL. Sensation intact light touch over the femoral nerve, and lateral cutaneous nerve. Results Labs Result diagrams: 04/03/21 14:54 04/03/21 14:54 Labs: Laboratory Results - last 24 hr 04/03/21 04/03/21 14:54 14:54 Hgb 11.2 L Hct 31.4 L Sodium 137 Potassium 3.4 L Chloride 104 Carbon Dioxide 26.0 Anion Gap 7.0 BUN 13 Creatinine 0.5 L Estimated GFR/1.73 m2 >= 60.00 Glucose 175 H Calcium 7.8 L Troponin I < 0.05 Last Vital Signs Temp 36.4 C L 04/03/21 15:07 Pulse 61 04/03/21 15:37 Resp 16 04/03/21 15:37 BP 117/65 04/03/21 15:37 Pulse Ox 98 04/03/21 15:37 COVID-19 Screening Have you, or household traveled for leisure in last 14 days?: No Had IN PERSON contact w/suspected or confirmed C-19 person: No
[2021-04-03] MEDS: ceFAZolin 1 GM/50 ML BAG IVPB (17:10)
[2021-04-03] MEDS: Celecoxib 200 MG CAP PO (21:13)
[2021-04-04] MEDS: ceFAZolin 1 GM/50 ML BAG IVPB ×2 (00:18→08:43)
[2021-04-04] MEDS: Lactated Ringers 1,000 ML 120 ML IV (00:25)
[2021-04-04 03:55] VITALS: BP 157/81; PULSE 73; RESP 16; TEMP 36.9; O2SAT 97
[2021-04-04 07:03] LABS: HCT 25.7 % (40.0-50.0); MCH 31.5 pg (27.0-33.0); MCHC 35.4 % (32.0-36.0); MCV 88.9 fL (80-95); MPV 11.4 fL (8.0-11.0); Platelet Count 130 10^3/uL (130-400); RBC 2.89 10^6/uL (4.36-5.78); RDW 12.1 % (11.8-14.1); RDW-SD 39.4 fL; WBC 8.11 10^3/uL (4.4-10.8)
[2021-04-04 07:11] LABS: HGB 9.1 g/dL (13.5-17.5)
[2021-04-04 07:14] LABS: Anion Gap 8.2 mmol/L (3-11); BUN 11 mg/dL (7-18); CO2 25.8 mmol/L (21.0-32.0); CREATININE 0.8 mg/dL (0.70-1.30); Calcium 7.7 mg/dL (8.5-10.1); Chloride 101 mmol/L (98-107); Glucose 163 mg/dL (74-106); Potassium 3.9 mmol/L (3.5-5.1); Sodium 135 mmol/L (136-145)
[2021-04-04 07:42] VITALS: BP 135/70; PULSE 75; RESP 18; TEMP 37.2; O2SAT 97
[2021-04-04] MEDS: Celecoxib 200 MG CAP PO (08:43)
[2021-04-04] MEDS: Pantoprazole 40 MG TABCR PO (08:43)
[2021-04-04] MEDS: Acetaminophen 500 MG TAB 1000 MG PO (08:43)
[2021-04-04] MEDS: Aspirin E.C. 81 MG TABEC PO (08:43)
[2021-04-04 08:48] VITALS: PULSE 61
--- NOTE | 2021-04-04 10:29 | PT.INIE ---
Date of service: 04/04/21 Time of Service: 10:29 PT Notes Visit Reasons: OA Right Hip Physical Therapy Inpatient Initial Evaluation Date: 04/04/2021 Referring Doctor: Mitchell Ibrahim MD PT Orders: PT CONSULT: S/P Ortho surgery. S/P R Anterior WAYNE. Precautions: WBAT on R LE with AD. Patient Profile/Admitting Diagnosis: Patient is a 75-year-old male with degenerative joint disease of the R hip and is S/P R anterior total hip arthroplasty on postoperative day 1. Needed overnight admission due to 2 episodes of vasovagal syncope while at the day surgery unit. PMHX: Medical History (Updated 03/20/21 @ 08:40 by Georgette Alonzo) Diverticulosis, sigmoid Hemangioma of liver managed by [facility] Left cervical radiculopathy Pain due to onychomycosis of toenails of both feet Right hip pain Surgical History (Updated 03/20/21 @ 08:16 by Georgette Alonzo) Sebaceous cyst s/p excision for right buttocks Social History/Home Situation: Lives with in a private home with one step leading onto a porch, rails on B sides. There is one step to the bedroom. 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 Equipment Owned/DME: [facility] Subjective: Feels much better this morning. Hopeful to go home as soon as he is medically cleared by orthopod. Objective: General Observation: Patient was seated on reclining chair, in no apparent distress. Mepilex Ag over surgical incision. Mental Status: Alert and oriented x 4 Pain: 0/10 ROM: Right Lower Extremity: Hip flexion WFL. Hip abduction WFL. Knee flexion WFL. Ankle dorsiflexion WFL. Ankle plantarflexion WFL. Left Lower Extremity: Hip flexion WFL. Hip abduction WFL. Knee flexion WFL. Ankle dorsiflexion WFL. Ankle plantarflexion WFL Strength: Right Lower Extremity: Hip flexors 4/5. Hip abductors 4/5. Knee flexors 5/5. Knee extensors 4/5. Ankle dorsiflexors 5/5. Ankle plantarflexors 5/5. Left Lower Extremity:Hip flexors 5/5. Hip abductors 5/5. Knee flexors 5/5. Knee extensors 5/5. Ankle dorsiflexors 5/5. Ankle plantarflexors 5/5. Sensation: Intact as to pain and light pressure in B LE Bed Mobility/Transfers: Sit to stand supervision Stand to sit supervision Gait: Guided patient through level surface ambulation of 300 feet using front wheeled walker with standby assist using step through gait pattern without report of pain, dizziness, chest pain, and headache throughout activity. Stairs: Instructed patient on safely negotiating six 4-inch steps and four 6-inch steps while holding onto 1 both rails using step to gait pattern requiring only standby assist without any reported increased pain in the surgical site. Balance: Static Sitting: Normal Dynamic Sitting: Normal Static Standing: Fair Dynamic Standing: Fair Special Tests: Mobility Limitations [facility] Basic Mobility Inpatient Short Form: Raw Score: 24 CMS Score: 0% deficit Informed Consent/Education: Patient instructed in purpose of PT consult and plan of care. Agreeable to proceed with established PT POC to achieve personal goals. Education and trainingon HEP with HEP packet provided for reference and increased compliance. Assessment: No vasovagal syncope encountered today. No pain in the right hip. No dizziness reported. No LOB observed. Patient requires the use of front wheeled walker to maximize independence with mobility ADL performance to reduce fall risk at home. Patient will benefit from home health PT services in order to progress mobility level using least restrictive assistive ambulatory device, assess home safety, identify additional equipment needs, and establish a functional maintenance program that will increase ability of patient to remain at home. Patient presents with clinical signs and symptoms consistent with current/admitting diagnoses that have resulted to mobility limitations, gait instability, generalized weakness, and impairment of motor control as demonstrated by the following impairment level findings: Catrachito Joseph MD 1. Decreased strength to right hip major muscle groups 2. Impaired standing balance 3. Impaired activity tolerance Impairments are contributing to the following functional limitations: 1. Inability to safely ambulate without assistive device 2. Increase completion time for mobility ADL performance 3. Increased fall risk Patient is assessed as a [id number] moderate complexity based on the following: History: 75-year-old male with past medical history as indicated above Examination: Demonstrable impairment in strength, balance, and mobility level with underlying impairments and functional limitations as exhibited above as well as deficit score of 0% utilizing the [facility] Mobility Inpatient Short Form Presentation: Stable Decision Makin moderate complexity Goals: N/A. PT evalaution only and 1 trearment session for mobility ADL training and HEP instruction. Plan of Care/Treatment Plan: N/A. PT evalaution only and 1 trearment session for mobility ADL training and HEP instruction. DISCHARGE RECOMMENDATIONS: Patient will benefit from home health PT services in order to progress mobility level using least restrictive assistive ambulatory device, assess home safety, identify additional equipment needs, and establish a functional maintenance program that will increase ability of patient to remain at home. TREATMENT CODE/TIME: 52661 x 24 minutes beginning at 10:29 PM. Thank you for the opportunity to participate in the care of this patient. Sanaz Martini PT, DPT, CLT [facility] [place], [place]
--- NOTE | 2021-04-04 10:59 | DSE_ITS ---
Date of service: 04/04/21 Time of Service: 10:59 DS: Diagnosis Discharge Diagnosis (1) Osteoarthritis of right hip: Status: Acute (2) Acute postoperative anemia due to greater than expected blood loss: Status: Acute Discharge Plan Disposition Patient Disposition: HOME Condition: Good Discharge Details Reason For Visit: OA Right Hip Admit Date/Time: 04/03/21 15:52 Admit Provider: Mitchell Ibrahim Attending Provider: Mitchell Ibrahim Primary Care Provider: Shavon Vela [facility] Course Hospital Course: Patient was admitted to the medical/surgical floor following the procedure due to postoperative hypotension and vasovagal event. The surgery was tolerated well without any notable medical, surgical, or anesthetic complications except for higher than expected blood loss. Mobilization began postoperatively and during mobilization he had a vasovagal event. He was monitored and was seen to have some residual hypotension with a drop of hemoglobin of just over 3 points. Therefore, he was admitted to hospital for observation and telemetry. On postop day #1 Toth catheter was discontinued and he was voiding spontaneously. Vitals were stable after admission upstairs. Postoperative hemoglobin dropped to 9.1 on post #1.. Physical therapy worked with the patient and was cleared for discharge home. No acute medical issues. Pain was controlled on oral regimen. Home Meds and New Rx's Prescriptions: New celecoxib 200 mg capsule 200 mg PO BID Qty: 60 RF: 0 aspirin 81 mg tablet,delayed release (DR/EC) 81 mg PO BID Qty: 60 RF: 0 pantoprazole 40 mg tablet,delayed release (DR/EC) 40 mg PO DAILY Qty: 30 RF: 0 gabapentin 300 mg capsule 300 mg PO QHS Qty: 14 RF: 0 acetaminophen 500 mg capsule 1,000 mg PO Q8H PRN PRNQty: 90 RF: 0 tramadol 50 mg Tablet 50 mg PO Q8H PRNQty: 6 RF: 0 Continued sildenafil [Viagra] 100 mg tablet 50 mg PO DAILY PRNRF: 0 brimonidine 0.2 % drops 1 drp ophthalmic (eye) BID RF: 0 latanoprost 0.005 % drops 1 drp ophthalmic (eye) HS RF: 0 fejakztnbwe-dncshjirq-khn C-Mn 500-400 mg capsule 1 cap PO DAILY RF: 0 amlodipine 10 mg tablet 10 mg PO DAILY RF: 0 Discharge Instructions Additional Instructions: Total Hip Discharge Instructions Activity: The most important activity is to walk. You should try to take short walks a few times a day. You have no restrictions on movement or positioning, but do not try to force what you do. You will find some stiffness and weakness with hip flexion (lifting your knee). Do not try to strengthen this too early, continue to practice walking and stairs and this will come. - Outpatient physical therapy can be helpful to help return you to a normal gait and improve your flexibility and strength. This can start around 2 weeks. For some patients, it?s not necessary. Usually this is determined at the time of discharge or at the first post-operative visit. - You should wear the DIRK hose on both legs for 2 weeks. Dressing: Keep the surgical dressing in place for at least one week. After the first week it may be removed and replace with light gauze and tape or nothing. It may get wet after 3 days but avoid soaking the dressing. If it gets wet, just lightly pat dry. It is important to always keep some gauze between skin folds, especially when you are sitting. Spend some time with the wound exposed when you are lying flat as the incision does wrinkle onto itself. Medications: - You should take Tylenol and an anti-inflammatory Celebrex as your primary pain control medications. If the Celebrex is too expensive or not covered, please call the office for another alternative (Advil/Ibuprofen or Naproxen/Aleve). - You have been prescribed a stronger pain medication Tramdaol for breakthrough pain, take as needed as prescribed. - You have also been prescribed a stomach acid reduction agent Pantoprozole to help reduce stomach acid and reflux. - You will be taking Aspirin 81mg twice a day for DVT prevention unless instructed otherwise. - If you have constipation you should take Colace or Miralax (both [id number]). It takes most people 3-4 days to have a bowel movement. Follow-up: 2 weeks If you have any acute concerns or questions, please do not hesitate to contact the office at [phone]. You may contact Dr. Ibrahim with any questions after hours through the hospital at [phone] or on his cell phone at [phone]. Stand Alone Forms: Anesthesia Discharge Inst., [place].Nerve Block Instructions Referrals: Mitchell Ibrahim MD [ [facility] STAFF PHYSICIAN] - 04/19/21 10:00 am Activity:: Activity as Tolerated Equipment/Supplies:: Walker Diet:: As Tolerated Discharge Orders Discharge Orders: Discharge Order (Routine); Ordered 04/04/21 Ordered By: Mitchell Ibrahim DS: Summary Time Spent with Patient providing and/or coordinating discharge services: Less than 30 minutes Status at Discharge Functional status at discharge: uses cane/walker Overall status at discharge: patient is progressing back to baseline Mental Status: mental status grossly normal Speech and Movement: speech and movement normal Mood: congruent mood Affect: normal affect Exam Psych Mental Status: mental status grossly normal Speech and Movement: speech and movement normal Mood: congruent mood Affect: normal affect DS: Data Vitals/I&O Vitals and I&O: Vital Signs Temperature 37.2 C 04/04/21 07:42 Temperature Source Temporal Artery Scan 04/04/21 07:42 Pulse 61 04/04/21 08:48 Pulse Rhythm Regular 04/04/21 06:43 Respiratory Rate 18 04/04/21 07:42 Respiratory Effort Non-Labored 04/04/21 06:43 Respiratory Depth Normal 04/04/21 06:43 Respiratory Pattern Normal 04/04/21 06:43 Blood Pressure 135/70 04/04/21 07:42 Blood Pressure Mean 82 04/03/21 15:37 Blood Pressure Position Left Lateral 04/03/21 14:31 Pulse Oximetry 97 04/04/21 07:42 Oxygen Delivery Method Room Air 04/04/21 07:42 Oxygen Flow Rate 0 04/04/21 07:42 Pain Level 0 04/04/21 08:43 Comment 04/04/21 03:55 Intake & Output 04/03/21 04/03/21 04/04/21 11:59 23:59 11:59 Intake Total 2218 / 4253.333 2035.333 / 4253.333 400 / 400 Output Total 850 / 1500 650 / 1500 600 / 600 Balance 1368 / 2753.333 1385.333 / 2753.333 -200 / -200 Weight 83.2 kg Intake: IV 1738 / 3293.333 1555.333 / 3293.333 50 / 50 Oral 480 / 960 480 / 960 350 / 350 Output: Urine 650 / 650 600 / 600 Estimated Blood Loss 850 / 850 Other: Urine Color Dark Danyell Yellow Urine Appearance Sediment Clear Comment FC placed as per Dr. Ibrahim's order. Stool Size Smear Stool Characteristics Soft Emesis Description None None Voiding Methods Urinal Data Completed and Pending Labs on day of discharge: Labs from last 24 hours 04/04/21 04/04/21 04/03/21 06:31 06:31 14:54 WBC 8.11 RBC 2.89 L Hgb 9.1 L D 11.2 L Hct 25.7 L 31.4 L MCV 88.9 MCH 31.5 MCHC 35.4 RDW 12.1 Plt Count 130 MPV 11.4 H Sodium 135 L Potassium 3.9 Chloride 101 Carbon Dioxide 25.8 Anion Gap 8.2 BUN 11 Creatinine 0.8 Estimated GFR/1.73 m2 >= 60.00 Glucose 163 H Calcium 7.7 L Troponin I 04/03/21 14:54 WBC RBC Hgb Hct MCV MCH MCHC RDW Plt Count MPV Sodium 137 Potassium 3.4 L Chloride 104 Carbon Dioxide 26.0 Anion Gap 7.0 BUN 13 Creatinine 0.5 L Estimated GFR/1.73 m2 >= 60.00 Glucose 175 H Calcium 7.8 L Troponin I < 0.05 [facility] Medical History Dislocation of L4-L5 lumbar vertebra Diverticulosis, sigmoid Hemangioma of liver managed by [facility] Left cervical radiculopathy Pain due to onychomycosis of toenails of both feet Right hip pain Surgical History History of total right hip replacement Sebaceous cyst s/p excision for right buttocks Social History Smoking/Tobacco Use Status: Former Tobacco Use Quit Date: 11/02/10 Smoking risk assessment performed?: Yes Alcohol Intake: never Substance use type: does not use Current gender identity: male Additional Social history: unablet oa assess kait
[2021-04-04 11:08] VITALS: BP 148/76; PULSE 74; RESP 18; TEMP 36.6; O2SAT 96
--- NOTE | 2021-04-04 12:20 | W.ANESPOSTOP ---
Postoperative Evaluation Date, Time and Location Date Performed: 04/04/21 Time Performed: 11:40 Patient Location: Med/Surg Vital Signs Most Recent Imported Vital Signs: Most Recent Vital Signs Temp Pulse Resp BP Pulse Ox 36.6 C 74 18 148/76 H 96 04/04/21 11:08 04/04/21 11:08 04/04/21 11:08 04/04/21 11:08 04/04/21 11:08 Most Recent Vital Signs Temp Pulse Resp BP Pulse Ox 36.1 C L 52 L 18 125/69 94 04/03/21 10:36 04/03/21 10:36 04/03/21 10:36 04/03/21 10:36 04/03/21 10:36 Pain Score Most Recent Pain Score: Most Recent Pain Score Pain Level 2 04/04/21 11:08 Assessment Mental Status: Awake (Alert & Oriented to Patient Baseline) Airway and Respiratory Function: Patent airway with normal (patient baseline) respiratory exam Cardiovascular Function: Hemodynamically Stable Hydration Status: Adequately Hydrated Nausea & Vomiting: No Nausea or Vomiting Pain: Pain is tolerable/mild (<5/10) Peripheral Nerve Block: Patient did not receive a nerve block Teaching Patient Teaching: Discussed Safe Use of Pain Medication Given Recent Anesthesia
--- NOTE | 2021-04-04 17:26 | CMPROGNOTE_ITS ---
- If Service Date Differs Date of service: 04/04/21 Time of Service: 17:26 Care Management Progress Note S/O: Jim was sitting up in bed when CM met with him. He reported that he had spoken to the MD, who is planning to discharge him this morning. He spoke of his three children and three grand children, who are in various locations across the [place]. He lives with his , who is a retired RN, and he is retired from construction. He reported that he likes to stay busy and still doesn't feel like there are enough hours in the day. He stated that he is independent and does not require any services upon discharge. He did not have any further needs at this time. A: Jim is a 75 year old male admitted to [facility] on 04/03/21 with Right WAYNE. P: Jim was discharged home with no services. His drove him home via private vehicle. He will follow up with Ortho and his discharge plan of care.
== END 2021-04-04 12:53 | disposition home or self-care (01) ==
LOC: MS 16:44 → SUR 04-04 15:41 → MS 04-04 15:44 → SUR 04-04 15:44 → MS 04-04 15:45
PROVIDERS: Admitting Provider Student in an Organized Health Care Education/Training Program; PCP Internal Medicine; Visit Provider Student in an Organized Health Care Education/Training Program
PROC: (CPT 27130; principal; 2021-04-03 07:30)
DX: M16.11 Unilateral primary osteoarthritis, right hip (principal); D62 Acute posthemorrhagic anemia; M96.810 Intraoperative hemorrhage and hematoma of a musculoskeletal structure complicating a musculoskeletal system procedure; I95.89 Other hypotension
CPT/HCPCS: 20985; 27130; 36415; 80048; 85027; 97162; 97163; 73501; 84484; 85014; 85018; 93005; 93010; G0378; J0690; J1885; J2001; J2405

== ENCOUNTER 2021-04-19 10:28 | Outpatient (CLI) | payer MEDICARE, BC, SELFPAY ==
--- NOTE | 2021-04-19 09:45 | DI.RAD_ITS ---
Exam(s) XR HIP RT COMPLETE AP PELVIS EXAM: XR HIP RT COMPLETE AP PELVIS CLINICAL HISTORY: 1st post op R WAYNE. TECHNIQUE: 2D digital imaging was performed. COMPARISON: CR XR HIP RT COMPLETE AP PELVIS from 03/01/2021 FINDINGS: There are stable postsurgical changes of a right total hip replacement. No evidence of hardware fail ure. The bones are intact. Atherosclerosis. Otherwise, the soft tissues are unremarkable. IMPRESSION: Stable right WAYNE. DATA REPOSITORY: RADIATION DOSE DELIVERED:
== END 2021-04-19 10:29 | disposition home or self-care (01) ==
LOC: DIORS 10:28
PROVIDERS: PCP Internal Medicine; Visit Provider Physician Assistant Surgical
DX: Z96.641 Presence of right artificial hip joint (principal); Z47.1 Aftercare following joint replacement surgery
CPT/HCPCS: 73502

== ENCOUNTER → 2021-05-31 10:33 | Outpatient (BNVA) | payer MEDICARE, BC, SELFPAY | PROVIDERS: PCP Internal Medicine; Referring Provider Internal Medicine; Visit Provider Student in an Organized Health Care Education/Training Program | DX: Z47.1 Aftercare following joint replacement surgery (principal); Z96.641 Presence of right artificial hip joint ==

== ENCOUNTER 2021-09-04 08:23 | Outpatient (REF) | payer MEDICARE, BC, SELFPAY ==
[2021-09-04 22:38] LABS: Abs Immature Grans 0.01 10^3/uL (0.0-0.06); Absolute Basophil Count 0.05 10^3/uL (0.0-0.2); Absolute Eosinophil Count 0.13 10^3/uL (0.0-0.7); Absolute Lymphocyte Count 0.99 10^3/uL (1.2-3.4); Absolute Monocyte Count 0.51 10^3/uL (0.1-0.8); Absolute Neutrophil Count 3.27 10^3/uL (1.2-6.7); Eosinophils % 2.6; HCT 43.5 % (40.0-50.0); HGB 14.8 g/dL (13.5-17.5); Immature Grans % 0.2; MCH 31.2 pg (27.0-33.0); MCV 91.6 fL (80-95); MPV 12.2 fL (8.0-11.0); Monocytes % 10.3; Neutrophils % 65.9; Nucleated RBC 0 %; Platelet Count 151 10^3/uL (130-400); RBC 4.75 10^6/uL (4.36-5.78); RDW 12.5 % (11.8-14.1); RDW-SD 41.7 fL; WBC 4.96 10^3/uL (4.4-10.8)
[2021-09-04 22:50] LABS: Hemoglobin A1C 4.9 % (<5.7)
== END 2021-09-04 08:24 | disposition home or self-care (01) ==
LOC: NCHCN 08:23
PROVIDERS: PCP Internal Medicine; Visit Provider Internal Medicine
DX: R73.9 Hyperglycemia, unspecified (principal); D64.9 Anemia, unspecified
CPT/HCPCS: 83036; 85025

== ENCOUNTER 2022-04-03 12:12 | Outpatient (CLI) | payer MEDICARE, BC, SELFPAY ==
--- NOTE | 2022-04-03 12:00 | DI.RAD_ITS ---
Exam(s) XR HIP RT AP LAT ONLY EXAM: XR HIP RT AP LAT ONLY CLINICAL HISTORY: ANNUAL F/U R WAYNE. TECHNIQUE: 2D digital imaging was performed. COMPARISON: CR XR HIP RT COMPLETE AP PELVIS from 04/19/2021 FINDINGS: Two views Is continued stable position alignment components of prosthesis. No fracture or loosening evident. The lateral view the inferior aspect of stem of the femoral component is not included in the field of view. IMPRESSION: DATA REPOSITORY: RADIATION DOSE DELIVERED:
== END 2022-04-03 12:13 | disposition home or self-care (01) ==
LOC: DIORS 12:12
PROVIDERS: PCP Internal Medicine; Referring Provider Internal Medicine; Visit Provider Student in an Organized Health Care Education/Training Program
DX: Z96.641 Presence of right artificial hip joint (principal)
CPT/HCPCS: 99213; 73502

== ENCOUNTER 2022-11-24 13:42 | Outpatient (REF) | payer MEDICARE, BC, SELFPAY ==
[2022-11-24 16:07] LABS: Anion Gap 8.7 mmol/L (3-11); BUN 14 mg/dL (7-18); CO2 26.3 mmol/L (21.0-32.0); CREATININE 0.8 mg/dL (0.70-1.30); Calcium 9.1 mg/dL (8.5-10.1); Calculated LDL 81 mg/dL (<100); Chloride 104 mmol/L (98-107); Cholesterol 172 mg/dL (<200); Estimated GFR 92.29 (mL/min/1.73m2); Glucose 108 mg/dL (74-106); HDL Cholesterol 82 mg/dL (40-60); Potassium 3.9 mmol/L (3.5-5.1); Sodium 139 mmol/L (136-145); Triglyceride 47 mg/dL (<150)
== END 2022-11-24 13:43 | disposition home or self-care (01) ==
LOC: NCHCN 13:42
PROVIDERS: PCP Internal Medicine; Visit Provider Internal Medicine
DX: I10 Essential (primary) hypertension (principal)
CPT/HCPCS: 80048; 80061

== ENCOUNTER 2023-11-18 08:42 | Outpatient (REF) | payer MEDICARE, BC, SELFPAY ==
[2023-11-18 14:32] LABS: Anion Gap 4.2 mmol/L (3-11); BUN 11 mg/dL (7-18); CO2 29.8 mmol/L (21.0-32.0); CREATININE 0.9 mg/dL (0.70-1.30); Calcium 9.2 mg/dL (8.5-10.1); Calculated LDL 85 mg/dL (<100); Chloride 104 mmol/L (98-107); Cholesterol 175 mg/dL (<200); Estimated GFR 88.51 (mL/min/1.73m2); Glucose 121 mg/dL (74-106); HDL Cholesterol 78 mg/dL (40-60); Potassium 3.8 mmol/L (3.5-5.1); Sodium 138 mmol/L (136-145); Triglyceride 62 mg/dL (<150)
== END 2023-11-18 08:43 | disposition home or self-care (01) ==
LOC: NCHCN 08:42
PROVIDERS: PCP Internal Medicine; Visit Provider Internal Medicine
DX: E78.5 Hyperlipidemia, unspecified (principal)
CPT/HCPCS: 80048; 80061

== ENCOUNTER 2024-03-17 08:49 | Outpatient (CLI) | payer MEDICARE, BC, SELFPAY ==
--- NOTE | 2024-03-17 08:30 | DI.RAD_ITS ---
Exam(s) XR HIP RT AP LAT ONLY EXAM: XR HIP RT AP LAT ONLY CLINICAL HISTORY: RIGHT HIP PAIN. TECHNIQUE: 2D digital imaging was performed. Three images were obtained. AP and lateral views were obtained. COMPARISON: CR XR HIP RT AP LAT ONLY from 04/03/2022 FINDINGS: BONES: There are stable post operative changes of a right total hip replacement present. No fracture or dislocation. JOINTS: The orthopedic hardware is in good position. No evidence of hardware loosening. SOFT TISSUE: Normal. IMPRESSION: Stable right total hip replacement. DATA REPOSITORY: RADIATION DOSE DELIVERED:
== END 2024-03-17 08:50 | disposition home or self-care (01) ==
LOC: DIORS 08:49
PROVIDERS: PCP Internal Medicine; Referring Provider Internal Medicine; Visit Provider Student in an Organized Health Care Education/Training Program
DX: Z96.641 Presence of right artificial hip joint (principal); Z47.1 Aftercare following joint replacement surgery; M76.891 Other specified enthesopathies of right lower limb, excluding foot
CPT/HCPCS: 99213; 73502